=== PATIENT | female | born 1985 | race Two or more races ===

== ENCOUNTER 2017-12-21 16:45 | Emergency (ER) | payer BC ==
[~2017-12-21] VITALS: Ht 157.5 cm; Wt 52.2 kg
[2017-12-21] MEDS ORDERED: oxyCODONE/APAP (5/325 MG) 1 UDTAB TABLET ONE (17:00)
[2017-12-21] MEDS ORDERED: TDAP [DIPH/PERTUSSIS/TET] 0.5 ML VIAL IM ONE ×2 (17:00)
[2017-12-21] MEDS ORDERED: oxyCODONE/APAP (5/325 MG) 1 UDTAB TABLET PO ONE (17:00)
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
--- NOTE | 2017-12-21 17:15 | NUR ---
PT MEDICATED ORDERED.
[2017-12-21 18:13] VITALS: BP 130/79
--- NOTE | 2017-12-21 18:13 | NUR ---
PT. VERBALIZED UNDERSTANDING OF AFTERCARE INSTRUCTIONS.Patient discharged to home in stable condition. Written and verbal after care instructions given. Patient verbalizes understanding of instruction.
== END 2017-12-21 18:14 | disposition home or self-care (01) ==
LOC: ER 16:48
DX: S20.212A Contusion of left front wall of thorax, initial encounter (principal); S60.416A Abrasion of right little finger, initial encounter; Z88.8 Allergy status to other drugs, medicaments and biological substances; Z60.2 Problems related to living alone; V49.49XA Driver injured in collision with other motor vehicles in traffic accident, initial encounter; Y93.89 Activity, other specified; Y92.410 Unspecified street and highway as the place of occurrence of the external cause; Y99.8 Other external cause status
CPT/HCPCS: 71045-TC; 73130-TC; 84703-TC; 90715; A4606; Z7610